=== PATIENT | female | born 1965 | race Caucasian/White ===

== ENCOUNTER 2024-04-02 20:03 | Emergency (ER) | payer OTHER, SELFPAY ==
[2024-04-02 20:28] LABS: % Basophils 0.7 % (0-2); % Eosinophils 4.4 % (0-6); % Immature Granulocytes 0.3 % (0-0.5); % Lymphocytes 31.4 % (20.5-51.1); % Neutrophils 56.2 % (42.2-75.2); Absolute Basophils 0.1 10^3/uL (0-0.2); Absolute Eosinophils 0.3 10^3/uL (0-0.7); Absolute Lymphocytes 2.3 10^3/uL (1.2-3.4); Absolute Monocytes 0.5 10^3/uL (0.1-0.6); Absolute Neutrophils 4.1 10^3/uL (1.4-6.5); Hematocrit 39.2 % (37.0-47.0); Mean Corp Hgb Conc. 33.2 g/dL (33.0-37.0); Mean Corpuscular Hgb 31.3 pg (27.0-31.0); Mean Corpuscular Volume 94.2 fL (81.0-99.0); Nucleated Red Blood Cells % 0 %; Platelet Count 213 10^3/uL (130-400); Red Blood Cell Count 4.16 10^6/uL (4.20-5.40); Red Cell Dist. Width 13.4 % (11.5-14.5); White Blood Cell Count 7.3 10^3/uL (4.8-10.8)
[2024-04-02 20:52] LABS: ALT (SGPT) 26 U/L (0-35); AST (SGOT) 28 U/L (14-36); Albumin 4.9 g/dl (3.5-5.0); Alkaline Phosphatase 88 U/L (38-126); Blood Urea Nitrogen 19 mg/dl (7-17); Calcium 10.1 mg/dl (8.4-10.2); Carbon Dioxide 27 mmol/L (22-30); Chloride 103 mmol/L (98-107); Glucose 114 mg/dl (70-99); Potassium 4.3 mmol/L (3.5-5.1); Sodium 142 mmol/L (135-145); Total Bilirubin 0.4 mg/dl (0.2-1.3); Total Protein 8.1 g/dl (6.3-8.2); eGFR > 60.00
[2024-04-02 20:57] LABS: Troponin I < 0.012 ng/ml
[2024-04-02 21:17] LABS: TSH 3.95 uIU/ml (0.47-4.68)
[2024-04-02 23:57] VITALS: BP 146/86; BMI 25.9
[2024-04-03] VITALS: BP 132/88
--- NOTE | 2024-04-03 00:53 | ED.GENMED ---
History of Present Illness
General
Chief Complaint: Heart Rate Problem
Source: patient
Exam Limitations: none
Time Seen by Provider: 04/03/24 00:43
History of Present Illness
History of Present Illness:
This is a 58 year old female that comes in with c/o palpitations. States that she has felt her heart beat irregular in the past. Then this morning it started and she went to work. 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
these extra beats. State that she went home and for a couple hours it was gone. Then it came back again. Denies any chest pain. States that she has a headache yesterday morning but took excedrine and it went away. Denies any fever, chills, chest
ain, SOB, abd pain, nausea, vomiting, diarrhea, headache at this time, dizziness, urinary burning.
Past History
Past History
ED Past Medical History: Hypercholesterolemia, Hypothyroidism and Other (MVP); Negative Asthma, HTN or NIDDM
Social History
Tobacco: Non-smoker
Alcohol: None
Drug: None
Personal:
Living: with family
Employment: Employed
Review of Systems
Review of Systems
All Other Systems: ROS reviewed and negative except as documented in HPI and ROS
Constitutional: Reports no symptoms; Denies fever or chills
EENT: Reports no symptoms
Respiratory: Denies cough or trouble breathing
Cardiac: Reports palpitations
ABD/GI: Reports no symptoms; Denies abdominal pain, nausea, vomiting or diarrhea
: Reports no symptoms
Musculoskeletal: Reports no symptoms
Skin: Reports no symptoms
Neurological: Reports no symptoms; Denies dizzy or headache
Psychiatric: Reports no symptoms
Phy Exam
General Physical Exam
General Presentation: well appearing and no apparent distress
General age: appears stated age
General Skin: warm and dry
General Habitus: normal
General Mental: alert
General Hydration: appears well hydrated
ENT Exam
ENT Exam: TM's normal, pharynx normal and neck supple
Eye Exam
Eye Exam: EOMI
Cardiovascular Exam
Cardiovascular Exam: regular rate/rhythm, no edema, no murmur and normal peripheral pulses
Pulmonary Exam
Pulmonary Exam: lungs clear, no respiratory distress, no rales, chest non tender, no crackles, no rhonchi, no wheezing and no cough
Gastrointestinal Exam
Gastrointestinal Exam: normal bowel sounds, non tender, soft, no organomegaly, no pulsatile mass and non distended
Musculoskeletal Exam
Musculoskeletal Exam: full ROM and no edema
Skin Exam
Skin Exam: normal color, warm/dry, no rash and no petechia
Psychiatric Exam
Psychiatric Exam: normal mood/affect
Course
Orders/Labs/Results
Orders:
Orders
04/02/24 20:06
Electrocardiogram (*1) Urgent
Reason for Study: Palpitations
EKG- Treatment ONCE
04/02/24 20:20
Complete Blood Count/With Diff Urgent
Comprehensive Metabolic Panel Urgent
TSH Urgent
Troponin I Urgent
Abnormal Lab Results
04/02/24
20:20
RBC 4.16 L 10^6/uL
(4.20-5.40)
MCH 31.3 H pg
(27.0-31.0)
BUN 19 H mg/dl
(7-17)
Glucose 114 H mg/dl
(70-99)
04/02/24 20:20
04/02/24 20:20
Slight Dehydration. Glucose nonfasting, Troponin <0.012, TSH normal at 3.95
Vital Signs
Initial and Last Documented VS:
Initial Vital Signs
Resp
16
04/02/24 23:54
Last Documented Vital Signs
Temp Pulse Resp BP Pulse Ox
97.9 F 88 19 132/88 99
04/02/24 23:57 04/03/24 00:00 04/03/24 00:00 04/03/24 00:00 04/03/24 00:00
MDM/Problems Addressed
Differential Diagnosis Includes:
Palpitations
MDM/Problems Addressed:
This is a 58 year old female that comes in with c/o irregular heart beat. States that she has had palpatitions in the past but they never lasted this long. States that in the past few month she recently started to drink coffee. Denies any chest
pain.
Will check labs and get ECG.
Explained to patient that she is a little :Dehydrated. Encouraged patient to stop the caffeine as this is a stimulant and can increase the Palpitations. Will have patient follow up with the [facility] as she has a history or MVP. Patient to
increase her water intake to 8-8oz glasses daily. Return with any concerns.
Chronic conditions affecting care:
Palpitations
Acute Exacerbation and/or Progression of Chronic Illness:
Palpittaions
*Pulse Oximetry
Patient hypoxic: no
*EKG
Interpreted by ED Provider?: Yes
Heart Rate: 91
Rate: normal
Rhythm: sinus and PVC's
[place]: left axis deviation
Interval: normal interval
QRS Pattern: normal QRS
Ischemia: no ischemia
*Radio Director Interpretation
Rate: normal
Heart Rate: 86
Rhythm: sinus
*Critical Care Note
Total Time (30-74mins, 75-104mins- exclusive of procedures): Not Applicable
ED Attending Note
-
Portions of this chart may have been created with voice recognition software.� Occasional wrong word or��sound alike� substitutions may have occurred due to the inherent limitations of voice recognition software.
Discharge Plan
Departure
Patient Disposition: Home (Routine Discharge)
Date of Disposition: 04/03/24
Time of Disposition: 01:01
Patient with high blood pressure during this ER visit?: Yes
Condition: Good
Covid-19: Not Applicable
Discharge Problem:
Heart palpitations
Instructions: Atrial Fibrillation (DC), Palpitations (DC)
Referrals:
Sandro Weinstien MD [Active] - Call in 1-3 days for appt
Chioma Dooley MD [Family Provider] -
Activity Restrictions/Additional Instructions:
As discussed, your blood work shows that you are very slightly dehydrated. Please increase your water intake to 8-8oz glasses daily. Please try and stop the caffeine as this will increase the palpitations. You have been given the name of a
[facility] for further evaluation. IF YOU HAVE ANY CHEST PAIN, OR HAVE ANY OTHER CONCERNS PLEASE RETURN TO THE EMERGENCY ROOM
Interventions
Interventions:
*Risk Screen - Suicide Last Done: 04/02/24 23:57
*General Assessment Last Done: 04/02/24 23:57
*Neglect/Abuse Screening Last Done: 04/02/24 23:57
*ED COVID-19 Vaccine History Last Done: 04/02/24 23:57
ED- Cardiac Assessment Last Done: 04/02/24 23:57
ED- Pulmonary Assessment Last Done: 04/02/24 23:57
Discharge Date and Time
Print Language: AZERI
[2024-04-03 01:00] VITALS: BP 125/66
== END 2024-04-03 01:24 | disposition home or self-care (01) ==
LOC: EMR 20:03
PROVIDERS: Emergency Medicine; EMERGENCY PHYSICIAN Emergency Medicine; FAMILY PHYSICIAN Internal Medicine
DX: R00.2 Palpitations (principal); E78.00 Pure hypercholesterolemia, unspecified; E03.9 Hypothyroidism, unspecified; E86.0 Dehydration; I49.3 Ventricular premature depolarization
CPT/HCPCS: 99283; 80053; 84443; 84484; 85025; 93005